=== PATIENT | female | born 1995 | race Caucasian/White ===

== ENCOUNTER 2020-08-08 10:18 | Emergency (ER) | payer OTHER ==
[~2020-08-08] VITALS: Ht 180.3 cm; Wt 90.7 kg
[2020-08-08 10:30] VITALS: BP_SYST 143
[2020-08-08 12:09] VITALS: BP_SYST 128
== END 2020-08-08 12:09 | disposition home or self-care (01) ==
LOC: SED 10:18
DX: S61.011A Laceration without foreign body of right thumb without damage to nail, initial encounter (principal); F12.90 Cannabis use, unspecified, uncomplicated; W26.8XXA Contact with other sharp object(s), not elsewhere classified, initial encounter; Y93.89 Activity, other specified; Y92.89 Other specified places as the place of occurrence of the external cause; Y99.8 Other external cause status
CPT/HCPCS: 99281; 99282

== ENCOUNTER 2020-08-10 17:40 | Emergency (ER) | payer OTHER ==
[~2020-08-10] VITALS: Ht 172.7 cm; Wt 72.6 kg
[2020-08-10 17:47] VITALS: BP_SYST 134
[2020-08-10] MEDS ORDERED: DIPH-TET-PERTUS Vaccine 0.5 ML VIAL (ADACEL) I.M. ONE (18:00)
[2020-08-10 18:15] VITALS: BP_SYST 134
== END 2020-08-10 18:16 | disposition home or self-care (01) ==
LOC: SED 17:40
DX: M79.641 Pain in right hand (principal); Z02.89 Encounter for other administrative examinations
CPT/HCPCS: 90715; 99283